=== PATIENT | female | born 1970 | race Caucasian/White ===

== ENCOUNTER → 2017-03-25 | Day surgery (SDC) | payer OTHER ==
--- NOTE | 2017-03-26 11:33 | PATH ---
Surgical Pathology Report Patient Name: MANAN MELGAR [facility]. Rec. #: [id number] /Age/Gender: 1970 (Age: 46) / F Account: [id number] Location: [facility] Taken: 03/25/2017 Received: 03/25/2017 Reported: 03/26/2017 Physicians: Angel Villarreal M.D. Specimen(s) Received RIGHT BREAST MASS, 9-10 O'CLOCK, 8CM FN Clinical History Probably benign Final Diagnosis RIGHT BREAST, 9:00-10:00 8 CM FROM NIPPLE, ULTRASOUND GUIDED NEEDLE CORE BIOPSY: SCLEROSED FIBROADENOMA. Electronically Signed Duncan Coughlin M.D. Gross Description Received in formalin labeled "right breast 9 to 10:00, 8 cmfn," is a 2.3 x 1.7 x 0.3 cm aggregate of multiple smyth-yellow, irregular to cylindrical portions of fibroadipose tissue admixed with blood clot. The formalin is filtered and the specimen is entirely submitted in one cassette. Time to formalin fixation: 2 minutes Total formalin fixation time: Approximately 8 hours. /03/25/2017 saudi03/25/2017
== END | disposition home or self-care (01) ==
LOC: FRADUS-SUR 12:09
PROVIDERS: ATTEND Internal Medicine
PROC: 0HBT3ZX Excision of Right Breast, Percutaneous Approach, Diagnostic (ICD-10-PCS; principal; 2017-03-25)
DX: N63 Unspecified lump in breast (principal); D24.1 Benign neoplasm of right breast
CPT/HCPCS: 19083; 87899; 88305-TC; A4648; G0206-TC

== ENCOUNTER 2018-02-23 16:05 | Emergency (ER) | payer OTHER ==
[2018-02-23 16:16] VITALS: BP 140/81; PULSE 81; TEMP 98; BMI 33.4
[2018-02-23] MEDS ORDERED: CYCLOBENZAPRINE HCL 10 MG TABLET (FP) PO ONE (16:30)
[2018-02-23] MEDS ORDERED: KETOROLAC TROMETHAMINE 60 MG/2 ML VIAL IM ONE (16:30)
[2018-02-23] MEDS ORDERED: CYCLOBENZAPRINE HCL 10 MG TABLET (FP) ONE (16:33)
[2018-02-23] MEDS ORDERED: KETOROLAC TROMETHAMINE 60 MG/2 ML VIAL ONE (16:33)
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
== END 2018-02-23 17:18 | disposition home or self-care (01) ==
LOC: JERFT 16:05
PROC: 3E0233Z Introduction of Anti-inflammatory into Muscle, Percutaneous Approach (ICD-10-PCS; principal; 2018-02-23)
DX: S16.1XXA Strain of muscle, fascia and tendon at neck level, initial encounter (principal); M62.838 Other muscle spasm; V49.59XA Passenger injured in collision with other motor vehicles in traffic accident, initial encounter; Y92.414 Local residential or business street as the place of occurrence of the external cause; Y93.89 Activity, other specified; Y99.8 Other external cause status
CPT/HCPCS: 96372; 99281-25